=== PATIENT | male | born 1940 ===

== ENCOUNTER → 2022-04-04 08:17 | Outpatient (BNVA) | payer MEDICARE, SELFPAY | PROVIDERS: PCP Family Medicine; Visit Provider Psychiatry & Neurology Neurology | DX: G62.9 Polyneuropathy, unspecified (principal); R26.9 Unspecified abnormalities of gait and mobility; G25.81 Restless legs syndrome; Z79.899 Other long term (current) drug therapy | CPT/HCPCS: 99202 ==

== ENCOUNTER 2022-04-17 11:53 | Outpatient (REF) | payer MEDICARE, SELFPAY ==
--- NOTE | 2022-04-17 10:30 | EMG_ITS ---
Right tibial and peroneal motor studies were performed. Right superficial peroneal and sural sensory studies were performed. Tibial H-reflex was obtained, and needle examination was performed. 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 MD COLIN Andrade/JENNIFER / [phone]
== END 2022-04-17 11:54 | disposition home or self-care (01) ==
LOC: HO.NEURO 11:53
PROVIDERS: Visit Provider Psychiatry & Neurology Neurology
DX: G62.9 Polyneuropathy, unspecified (principal); R20.0 Anesthesia of skin
CPT/HCPCS: 95886; 95909

== ENCOUNTER 2022-10-07 10:51 | Outpatient (AMB) | payer MEDICARE, SELFPAY ==
--- NOTE | 2022-10-07 11:01 | A.OFFVIS_ITS ---
Intake Vital Signs 10/07/22 11:07 Weight 164 lb BP 120/62 Blood Pressure Location Rt brachial Position Sitting Pulse 60 Pulse Source Pulse Oximeter Pulse Oximetry (%) 98 Oxygen Delivery Method Room Air Intake Visit Reasons: 6m f/u Neuropathy-lvm Intake Note: F/U Neuropathy Environmental Services Lead Required: No Allergies lisinopril Allergy (Unknown, Verified 10/07/22 11:01) Unknown simvastatin Allergy (Unknown, Verified 10/07/22 11:01) Unknown HPI HPI Comments History of Present Illness Details 81y/o male comes for follow up of neuropathy.He is doing well with the current regimen . He trie dto stop gabapentin but it worsened his pain. he travelled to [facility] for 3 weeks about 4 months ago and did very well. he walked atleast 5 miles a day. His balance is good. . He is not able to tell the onset time but worse since Oct 2021 after his trip to the [facility]. His trip was 3 weeks long and towards the end he had difficulty with climbing stairs He reports numbness, pins and needles sensation, occasional pain in his feet. walking made his symptoms worse but more noticeable at night when he is trying to sleep.He is not sure if moving around helps. He denies any falls. He drinks 2-3 beer/week and former heavy alcoholic ( 18-20 cans/week) [facility] Medical History Alcoholism Angina of effort CAD (coronary artery disease) Carotid artery stenosis GERD (gastroesophageal reflux disease) HTN (hypertension) Hyperlipidemia Interstitial lung disease Myocardial infarct Neuropathy Numbness Surgical History Hx of CABG Family History Father Pancreatic cancer Mother Arthritis Bursitis Brother Osteogenesis imperfecta Social History Alcohol intake: current Patient Tobacco Use Status: Never used Tobacco Use of substances other than those prescribed or required for medical reasons: No Physical Exam Vital Signs: Last Vital Signs Pulse 60 10/07/22 11:07 BP 120/62 10/07/22 11:07 Pulse Ox 98 10/07/22 11:07 Oxygen Delivery Method Room Air 10/07/22 11:07 Const General: cooperative, healthy appearing and comfortable Nutritional Appearance: average body habitus Orientation/consciousness: patient oriented x3 Limitations: no limitations HEENT Head: Yes normal to inspection, Yes No palpable skull fracture present and Yes normocephalic Eyes Pupils: Equal, round and reactive pupils present Neck Neck: Yes normal visual inspection Neuro General: patient oriented x3, tone normal, moves all extremities and no focal motor deficits Cranial nerves: Yes Facial sensation intact/muscles of mastication intact, Yes Equal, round and reactive pupils present, Yes Nystagmus not present, Yes Normal facial strength present, Yes Midline tongue present, Yes Symmetric palate elevation present and Yes Ability to bilaterally elevate shoulders present Cognition (Neuro): normal cognition Gait exam (Neuro): Other gait observations present (stooped , good stride, normal base , good arm swings ) Motor exam (neuro): 5/5 motor strength present throughout and Normal motor mu scle tone present throughout Deep tendon reflexes (DTR's): Right triceps reflex intensity grade: 0, Left triceps reflex intensity grade: 0, Rt Biceps (C5, C6): 0, Left biceps reflex intensity grade: 0, Right brachioradialis reflex intensity grade: 0, Left brachioradialis reflex intensity grade: 0, Right patellar reflex intensity grade: 0, Left patellar reflex intensity grade: 0 and Right ankle reflex intensity grade: 0 Coordination: [id number] test normal Psych Appearance: grossly normal Assessment & Plan Assessment & Plan (1) Neuropathy: Code(s): G62.9 - Polyneuropathy, unspecified (2) Gait disorder: Code(s): R26.9 - Unspecified abnormalities of gait and mobility (3) Restless legs syndrome (RLS): Code(s): G25.81 - Restless legs syndrome Plan Continue Vitamin B 12- B complex in AM ALpha lipoic acid 200mg once a day Continue exercise EMG NCS - moderate tos evere axonal sensory motor neuropathy Continue gabapentin 200mg qhs Medications: New alpha lipoic acid 200 mg PO BID 60 caps 6RF Coding Level of Care Code Est Pt Level 4 (80783) Diagnoses Neuropathy G62.9 Gait disorder R26.9 Restless legs syndrome (RLS) G25.81
[2022-10-07 11:07] VITALS: BP 120/62; PULSE 60; O2SAT 98
== END 2022-10-07 11:25 | disposition home or self-care (01) ==
PROVIDERS: Visit Provider Psychiatry & Neurology Neurology
DX: G62.9 Polyneuropathy, unspecified (principal); R26.9 Unspecified abnormalities of gait and mobility; G25.81 Restless legs syndrome
CPT/HCPCS: 99214

== ENCOUNTER → 2022-10-07 10:51 | Outpatient (BNVA) | payer MEDICARE, SELFPAY | PROVIDERS: Visit Provider Psychiatry & Neurology Neurology | DX: G62.9 Polyneuropathy, unspecified (principal); G25.81 Restless legs syndrome; R26.9 Unspecified abnormalities of gait and mobility | CPT/HCPCS: 99212 ==

== ENCOUNTER 2023-09-29 12:23 | Outpatient (AMB) | payer MEDICARE, SELFPAY ==
--- NOTE | 2023-09-29 12:38 | MHC.OFFVIS ---
Vital Signs 09/29/23 12:45 Height 5 ft 7 in Weight 165 lb 6 oz BMI 25.9 BP 120/70 Blood Pressure Location Rt brachial Position Sitting Respiration 16 Pulse 58 Pulse Source Pulse Oximeter Pulse Oximetry (%) 99 Oxygen Delivery Method Room Air Intake Visit Reasons: 1yr follow up Neuropathy - Conf Intake Note: Pt presents for a one year follow up for gait disorder. Change Director Required: No Allergies lisinopril Allergy (Unknown, Verified 09/29/23 12:39) Unknown simvastatin Allergy (Unknown, Verified 09/29/23 12:39) Unknown HPI Comments Details: 83y/o male comes for follow up of neuropathy.He is doing well with the current regimen . He tried to stop gabapentin but it worsened his pain. he walked atleast 5 miles a day. His balance is good. . He is not able to tell the onset time but worse since Oct 2021 after his trip to the [facility]. His trip was 3 weeks long and towards the end he had difficulty with climbing stairs He reports numbness, pins and needles sensation, occasional pain in his feet. walking made his symptoms worse but more noticeable at night when he is trying to sleep.He is not sure if moving around helps. He denies any falls. He drinks 2-3 beer/week and former heavy alcoholic ( 18-20 cans/week) [facility] Medical History Numbness Alcoholism Angina of effort Carotid artery stenosis GERD (gastroesophageal reflux disease) Hyperlipidemia HTN (hypertension) CAD (coronary artery disease) Myocardial infarct Interstitial lung disease Neuropathy Surgical History Hx of CABG Family History Father Pancreatic cancer Mother Arthritis Bursitis Brother Osteogenesis imperfecta Social History Alcohol intake: current Patient Tobacco Use Status: Never used Tobacco Physical Exam Vital Signs: Last Vital Signs Pulse 58 09/29/23 12:45 Resp 16 09/29/23 12:45 BP 120/70 09/29/23 12:45 Pulse Ox 99 09/29/23 12:45 Oxygen Delivery Method Room Air 09/29/23 12:45 BMI result Body Mass Index 25.9 Const General: cooperative, healthy appearing and comfortable Nutritional Appearance: average body habitus Orientation/consciousness: patient oriented x3 Limitations: no limitations HEENT Head: Yes normal to inspection, Yes No palpable skull fracture present and Yes normocephalic Eyes Pupils: Equal, round and reactive pupils present Neck Neck: Yes normal visual inspection Neuro General: patient oriented x3, tone normal, moves all extremities and no focal motor deficits Cranial nerves: Yes Facial sensation intact/muscles of mastication intact, Yes Equal, round and reactive pupils present, Yes Nystagmus not present, Yes Normal facial strength present, Yes Midline tongue present, Yes Symmetric palate elevation present and Yes Ability to bilaterally elevate shoulders present Cognition (Neuro): normal cognition Gait exam (Neuro): Other gait observations present (stooped , good stride, normal base , good arm swings ) Motor exam (neuro): 5/5 motor strength present throughout and Normal motor muscle tone present throughout Deep tendon reflexes (DTR's): Right triceps reflex intensity grade: 0, Left triceps reflex intensity grade: 0, Rt Biceps (C5, C6): 0, Left biceps reflex intensity grade: 0, Right brachioradialis reflex intensity grade: 0, Left brachioradialis reflex intensity grade: 0, Right patellar reflex intensity grade: 0, Left patellar reflex intensity grade: 0 and Right ankle reflex intensity grade: 0 Coordination: [id number] test normal Psych Appearance: grossly normal Assessment & Plan Assessment & Plan (1) Neuropathy: Code(s): G62.9 - Polyneuropathy, unspecified Category: Medical (2) Gait disorder: Code(s): R26.9 - Unspecified abnormalities of gait and mobility Category: Medical (3) Restless legs syndrome (RLS): Code(s): G25.81 - Restless legs syndrome Category: Medical Plan Continue Vitamin B 12- B complex in AM ALpha lipoic acid 200mg once a day Continue exercise EMG NCS - moderate tos evere axonal sensory motor neuropathy Continue gabapentin 200mg qhs Coding Level of Care Code Est Pt Level 4 (90729) Diagnoses Neuropathy G62.9 Gait disorder R26.9 Restless legs syndrome (RLS) G25.81
[2023-09-29 12:45] VITALS: BP 120/70; PULSE 58; RESP 16; O2SAT 99; BMI 25.9
== END 2023-09-29 12:57 | disposition home or self-care (01) ==
PROVIDERS: PCP Family Medicine; Visit Provider Psychiatry & Neurology Neurology
DX: G62.9 Polyneuropathy, unspecified (principal); R26.9 Unspecified abnormalities of gait and mobility; G25.81 Restless legs syndrome
CPT/HCPCS: 99214

== ENCOUNTER → 2023-09-29 12:23 | Outpatient (BNVA) | payer MEDICARE, SELFPAY | PROVIDERS: PCP Family Medicine; Visit Provider Psychiatry & Neurology Neurology | DX: G62.9 Polyneuropathy, unspecified (principal); R26.9 Unspecified abnormalities of gait and mobility; G25.81 Restless legs syndrome | CPT/HCPCS: 99212 ==